=== PATIENT | male | born 1955 | race Caucasian/White ===

== ENCOUNTER 2016-11-21 20:13 | Emergency (ER) | payer OTHER ==
[2016-11-21 20:24] VITALS: BP 120/91
--- NOTE | 2016-11-21 20:26 | ER Document Report ---
ED General - General Stated Complaint: NON COMPLIANT Time Seen by Provider: 11/21/16 20:24 Notes: The patient is a 61-year-old male, past medical history dementia, presents by EMS from [facility] (Dementia and [facility]) after he was refusing vital signs earlier today. Based on the papers from the penitentiary, the patient was aggressive and not taking his medications. He has had multiple urination and defecation episodes in [place]'s and [place]'s rooms and their trash cans, according to the penitentiary records that were sent. Patient is in the emergency room, cooperative and allowing vital signs. He has no complaints at this time. Past Medical History - General Information source: Patient, Transfer Record - Social History Smoking Status: Unknown if Ever Smoked Family History: Reviewed & Not Pertinent Review of Systems - Review of Systems Notes: REVIEW OF SYSTEMS: CONSTITUTIONAL: -fevers, -chills EENT: -eye pain, -difficulty swallowing, -nasal congestion CARDIOVASCULAR:-chest pain, -syncope. RESPIRATORY: -cough, -SOB GASTROINTESTINAL: -abdominal pain, - nausea, -vomiting, -diarrhea GENITOURINARY: -dysuria, -hematuria MUSCULOSKELETAL: -back pain, -neck pain SKIN: -rash or skin lesions. HEMATOLOGIC: -easy bruising or bleeding. LYMPHATIC: -swollen, enlarged glands. NEUROLOGICAL: -altered mental status or loss of consciousness, -headache, - neurologic symptoms PSYCHIATRIC: -anxiety, -depression. ALL OTHER SYSTEMS REVIEWED AND NEGATIVE. Physical Exam - Vital signs Vitals: Pulse Resp BP Pulse Ox 88 16 120/91 H 98 11/21/16 20:18 11/21/16 20:18 11/21/16 20:18 11/21/16 20:18 - Notes Notes: PHYSICAL EXAMINATION: GENERAL: Well-appearing, well-nourished and in no acute distress. HEAD: Atraumatic, normocephalic. EYES: Pupils equal round and reactive to light, extraocular movements intact, sclera anicteric, conjunctiva are normal. ENT: nares patent, oropharynx clear without exudates. Moist mucous membranes. NECK: Normal range of motion, supple without lymphadenopathy LUNGS: Breath sounds clear to auscultation bilaterally and equal. No wheezes rales or rhonchi. HEART: Regular rate and rhythm without murmurs ABDOMEN: Soft, nontender, normoactive bowel sounds. No guarding, no rebound. No masses appreciated. EXTREMITIES: Normal range of motion, no pitting or edema. No cyanosis. NEUROLOGICAL: Cranial nerves grossly intact. Normal speech, normal gait. Normal sensory and motor exams. PSYCH: Normal mood, normal affect. Cooperative and pleasant. SKIN: Warm, Dry, normal turgor, no rashes or lesions noted. Course - Re-evaluation Re-evalutation: Patient's vital signs are completely normal in the emergency room. He is cooperative and pleasant in the emergency room and has no complaints. Labs and urine are not indicated on a well-appearing patient without any complaints and normal vital signs. Patient has no evidence of an emergent condition at this time. Will discharge him back to [facility] with f/u at [facility]. - Vital Signs Vital signs: Temp Pulse Resp BP Pulse Ox 88 16 120/91 H 98 11/21/16 20:18 11/21/16 20:18 11/21/16 20:18 11/21/16 20:18 Discharge - Discharge Clinical Impression: Normal exam Condition: Stable Disposition: HOME, SELF-CARE Additional Instructions: Your vital signs and exam are completely normal. No emergent condition is found at this time. The aggression may be a result of your increasing dementia. Follow-up with the [facility] for further evaluation and treatment.
== END 2016-11-21 20:56 | disposition home or self-care (01) ==
LOC: ER 20:13
DX: Z91.14 Patient's other noncompliance with medication regimen (principal); G30.9 Alzheimer's disease, unspecified; F02.80 Dementia in other diseases classified elsewhere, unspecified severity, without behavioral disturbance, psychotic disturbance, mood disturbance, and anxiety
CPT/HCPCS: 99284

== ENCOUNTER 2016-12-04 08:53 | Emergency (ER) | payer OTHER ==
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
[2016-12-04 10:58] LABS: ABSOLUTE BASOPHILS # (AUTO) 0.1 10^3/uL (0.0-0.2); ABSOLUTE EOSINOPHILS # (AUTO) 0.2 10^3/uL (0.0-0.6); ABSOLUTE MONOCYTES (AUTO) 0.7 10^3/uL (0.1-1.4); ABSOLUTE NEUT (AUTO) 7.9 10^3/uL (1.7-8.2); BASOPHILS % (AUTO) 0.8 % (0-2); EOSINOPHILS % (AUTO) 1.5 % (0-6); HEMATOCRIT 50.5 % (37.9-51.0); HEMOGLOBIN 16.7 g/dL (13.5-17.0); HGB HCT DIFFERENCE -0.4; LYMPHOCYTES % (AUTO) 10.4 % (13-45); MEAN CORPUSCULAR HEMOGLOBIN 29.6 pg (27.0-33.4); MEAN CORPUSCULAR VOLUME 90 fl (80-97); RED BLOOD COUNT 5.63 10^6/uL (4.35-5.55); RED CELL DISTRIBUTION WIDTH 13.7 % (11.5-14.0); SEGMENTED NEUTROPHILS % (AUTO) 80.3 % (42-78); WHITE BLOOD COUNT 9.9 10^3/uL (4.0-10.5)
[2016-12-04 11:27] LABS: ALANINE AMINOTRANSFERASE 24 U/L (21-72); ALBUMIN 4.5 g/dL (3.5-5.0); ALKALINE PHOSPHATASE 102 U/L (38-126); ANION GAP 14 (5-19); ASPARTATE AMINO TRANSFERASE 28 U/L (17-59); BILIRUBIN,DIRECT 0.4 mg/dL (0.0-0.4); BILIRUBIN,TOTAL 0.9 mg/dL (0.2-1.3); BLOOD UREA NITROGEN 18 mg/dL (7-20); CARBON DIOXIDE 25 mmol/L (22-30); CHLORIDE 101 mmol/L (98-107); CREATININE RESULT 1.17 mg/dL (0.52-1.25); GLUCOSE 93 mg/dL (75-110); MAGNESIUM 2.2 mg/dL (1.6-2.3); POTASSIUM 4.5 mmol/L (3.6-5.0); SODIUM 140.4 mmol/L (137-145); TOTAL PROTEIN 7.7 g/dL (6.3-8.2)
[2016-12-04 11:28] LABS: ALCOHOL < 10 mg/dL (NONE DETECTED)
[2016-12-04] MEDS ORDERED: HALOPERIDOL LACTATE INJ 5 MG/1 ML VIAL IM ONE (12:31)
[2016-12-04] MEDS ORDERED: MIDAZOLAM 2 MG/2 ML INJ IM ONE (12:32)
[2016-12-04] MEDS ORDERED: DIPHENHYDRAMINE HCL 50 MG/ML VIAL IM ONE (12:32)
[2016-12-04 12:59] LABS: FREE T3 4.17 pg/mL (2.77-5.27)
[2016-12-04] MEDS ORDERED: DIVALPROEX SODIUM 500 MG TAB.SR.24H PO SCH (14:00)
[2016-12-04 14:20] LABS: APPEARANCE,URINE CLEAR; BILIRUBIN,URINE NEGATIVE (NEGATIVE); GLUCOSE, URINE NEGATIVE (NEGATIVE); KETONES,URINE 100 mg/dL (NEGATIVE)
[2016-12-04 14:21] LABS: LEUKOCYTE ESTERASE,URINE NEGATIVE (NEGATIVE); NITRITE,URINE NEGATIVE (NEGATIVE); PROTEIN,URINE NEGATIVE (NEGATIVE); URINE SPECIFIC GRAVITY 1.022
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
[2016-12-04] MEDS ORDERED: ZIPRASIDONE MESYLATE INJ/PF 20 MG SDV IM ONE (14:34)
[2016-12-04 14:40] LABS: URINE BARBITURATES SCREEN NEGATIVE; URINE METHADONE SCREEN NEGATIVE; URINE OPIATES LOW NEGATIVE; URINE PHENCYCLIDINE SCREEN NEGATIVE
[2016-12-04] MEDS ORDERED: HYDROXYZINE PAMOATE 50 MG CAPSULE PO SCH (22:00)
[2016-12-04] MEDS ORDERED: BUSPIRONE HCL 10 MG TABLET PO SCH (22:00)
[2016-12-05] MEDS ORDERED: BUSPIRONE HCL 10 MG TABLET PO SCH (08:00)
[2016-12-05] MEDS ORDERED: CLONIDINE 0.1 MG/24 HR PATCH.TDWK TD ONE (09:20)
[2016-12-05] MEDS ORDERED: DIVALPROEX SODIUM 125 MG CAP.SPRINK PO SCH (10:00)
--- NOTE | 2016-12-05 15:01 | ER Document Report ---
Doctor's Note Notes: 12/05/16 15:00 The patient has been taking his medicine orally today and is felt that he can return to the [facility] with some changes to his medications.
[2016-12-05 18:23] VITALS: BP 149/92
== END 2016-12-05 18:23 | disposition home or self-care (01) ==
LOC: ER 08:53
DX: G30.9 Alzheimer's disease, unspecified (principal); F02.80 Dementia in other diseases classified elsewhere, unspecified severity, without behavioral disturbance, psychotic disturbance, mood disturbance, and anxiety; N18.9 Chronic kidney disease, unspecified; Z79.899 Other long term (current) drug therapy
CPT/HCPCS: 99285; 96372; 51701; 36415; 84439; 82962; 80307 ×2; 83735; 84443; 85025; 80053; 81001; 84481; J2250; J1200; J1630; J3486; J3490 ×2

== ENCOUNTER → 2016-12-15 | Emergency (ER) | payer OTHER ==
[~2016-12-15] MED LIST: DIVALPROEX SODIUM 125 MG CAP.SPRINK PO ONE; DIVALPROEX SODIUM 125 MG CAP.SPRINK PO SCH; HALOPERIDOL 5 MG TABLET PO ONE; LORAZEPAM 1 MG TABLET ONE; LORAZEPAM 1 MG TABLET PO ONE; LORAZEPAM INJ 2 MG/1 ML VIAL IM ONE
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
[2016-12-15 18:27] LABS: ABSOLUTE BASOPHILS # (AUTO) 0.1 10^3/uL (0.0-0.2); ABSOLUTE EOSINOPHILS # (AUTO) 0.2 10^3/uL (0.0-0.6); ABSOLUTE LYMPHOCYTES (AUTO) 1.2 10^3/uL (0.5-4.7); ABSOLUTE MONOCYTES (AUTO) 0.7 10^3/uL (0.1-1.4); ABSOLUTE NEUT (AUTO) 7.6 10^3/uL (1.7-8.2); BASOPHILS % (AUTO) 0.6 % (0-2); EOSINOPHILS % (AUTO) 1.6 % (0-6); HEMATOCRIT 43.7 % (37.9-51.0); HEMOGLOBIN 15.2 g/dL (13.5-17.0); HGB HCT DIFFERENCE 1.9; MEAN CORPUSCULAR HEMOGLOBIN 30.1 pg (27.0-33.4); MEAN CORPUSCULAR HGB CONC 34.6 g/dL (32.0-36.0); MEAN CORPUSCULAR VOLUME 87 fl (80-97); MONOCYTES % (AUTO) 7.1 % (3-13); RED BLOOD COUNT 5.03 10^6/uL (4.35-5.55); SEGMENTED NEUTROPHILS % (AUTO) 78.7 % (42-78); WHITE BLOOD COUNT 9.7 10^3/uL (4.0-10.5)
[2016-12-15 18:42] LABS: ALANINE AMINOTRANSFERASE 27 U/L (21-72); ALBUMIN 4.3 g/dL (3.5-5.0); ALKALINE PHOSPHATASE 101 U/L (38-126); ANION GAP 11 (5-19); ASPARTATE AMINO TRANSFERASE 23 U/L (17-59); BILIRUBIN,DIRECT 0.4 mg/dL (0.0-0.4); BILIRUBIN,TOTAL 0.5 mg/dL (0.2-1.3); BLOOD UREA NITROGEN 16 mg/dL (7-20); CALCIUM 9.5 mg/dL (8.4-10.2); CARBON DIOXIDE 24 mmol/L (22-30); CHLORIDE 104 mmol/L (98-107); CREATININE RESULT 1.04 mg/dL (0.52-1.25); GLUCOSE 93 mg/dL (75-110); POTASSIUM 4.1 mmol/L (3.6-5.0); SODIUM 139.1 mmol/L (137-145); TOTAL PROTEIN 7.5 g/dL (6.3-8.2)
[2016-12-15 18:47] LABS: VALPROIC ACID 51.2 ug/mL (50.0-120.0)
[2016-12-15 21:08] LABS: ABSOLUTE BASOPHILS # (AUTO) 0.1 10^3/uL (0.0-0.2); ABSOLUTE EOSINOPHILS # (AUTO) 0.2 10^3/uL (0.0-0.6); ABSOLUTE LYMPHOCYTES (AUTO) 1.4 10^3/uL (0.5-4.7); ABSOLUTE MONOCYTES (AUTO) 0.8 10^3/uL (0.1-1.4); ABSOLUTE NEUT (AUTO) 7.7 10^3/uL (1.7-8.2); BASOPHILS % (AUTO) 0.7 % (0-2); EOSINOPHILS % (AUTO) 2.1 % (0-6); HEMOGLOBIN 14.2 g/dL (13.5-17.0); HGB HCT DIFFERENCE 1.6; LYMPHOCYTES % (AUTO) 13.8 % (13-45); MEAN CORPUSCULAR HEMOGLOBIN 30.2 pg (27.0-33.4); MEAN CORPUSCULAR HGB CONC 34.6 g/dL (32.0-36.0); MEAN CORPUSCULAR VOLUME 87 fl (80-97); MONOCYTES % (AUTO) 7.9 % (3-13); RED CELL DISTRIBUTION WIDTH 13.7 % (11.5-14.0); SEGMENTED NEUTROPHILS % (AUTO) 75.5 % (42-78); WHITE BLOOD COUNT 10.2 10^3/uL (4.0-10.5)
[2016-12-15 21:33] LABS: ALANINE AMINOTRANSFERASE 18 U/L (21-72); ALBUMIN 3.7 g/dL (3.5-5.0); ALKALINE PHOSPHATASE 87 U/L (38-126); ANION GAP 11 (5-19); ASPARTATE AMINO TRANSFERASE 23 U/L (17-59); BILIRUBIN,DIRECT 0.4 mg/dL (0.0-0.4); BILIRUBIN,TOTAL 0.5 mg/dL (0.2-1.3); BLOOD UREA NITROGEN 17 mg/dL (7-20); CALCIUM 9.2 mg/dL (8.4-10.2); CARBON DIOXIDE 25 mmol/L (22-30); CHLORIDE 103 mmol/L (98-107); CREATININE RESULT 1.04 mg/dL (0.52-1.25); GLUCOSE 93 mg/dL (75-110); POTASSIUM 3.9 mmol/L (3.6-5.0); TOTAL PROTEIN 6.5 g/dL (6.3-8.2)
[2016-12-15] MEDS: HALOPERIDOL 1 MG TABLET PO SCH (22:12)
--- NOTE | 2016-12-15 23:59 | EKG REPORT ---
SEVERITY:- NORMAL ECG - SINUS RHYTHM : Confirmed by: Paddy Napier 15-Dec-2016 23:58:49
[2016-12-16] MEDS: QUETIAPINE FUMARATE 25 MG TABLET PO SCH (10:18)
[2016-12-16] MEDS: DIVALPROEX SODIUM 125 MG CAP.SPRINK PO SCH ×2 (10:18→18:12)
[2016-12-16] MEDS: POLYETHYLENE GLYCOL 3350 POWDER 17 GM/1 PACKET PO SCH (10:18)
[2016-12-16] MEDS: DONEPEZIL HCL 5 MG TABLET PO SCH (10:18)
[2016-12-16] MEDS: AMLODIPINE BESYLATE 10 MG TABLET PO SCH (10:18)
[2016-12-16] MEDS: TAMSULOSIN HCL 0.4 MG CAP.SR.24H PO SCH (10:18)
[2016-12-16] MEDS: HALOPERIDOL 1 MG TABLET PO SCH ×2 (14:08→21:15)
--- NOTE | 2016-12-16 18:26 | ER Document Report ---
Doctor's Note Notes: 12/16/16 18:26 Saw and evaluated patient. Patient has no acute complaints. Social work is attempting to find placement for the patient. Medications have been continued.
[2016-12-17 04:08] LABS: APPEARANCE,URINE CLEAR; BILIRUBIN,URINE NEGATIVE (NEGATIVE); GLUCOSE, URINE NEGATIVE (NEGATIVE); KETONES,URINE TRACE mg/dL (NEGATIVE); LEUKOCYTE ESTERASE,URINE NEGATIVE (NEGATIVE); NITRITE,URINE NEGATIVE (NEGATIVE); PROTEIN,URINE NEGATIVE (NEGATIVE); URINE SPECIFIC GRAVITY 1.021
[2016-12-17 04:18] LABS: URINE BARBITURATES SCREEN NEGATIVE; URINE METHADONE SCREEN NEGATIVE; URINE OPIATES LOW NEGATIVE; URINE PHENCYCLIDINE SCREEN NEGATIVE
[2016-12-17] MEDS: HALOPERIDOL 1 MG TABLET PO SCH ×2 (06:00→13:48)
[2016-12-17] MEDS: DONEPEZIL HCL 5 MG TABLET PO SCH (10:31)
[2016-12-17] MEDS: TAMSULOSIN HCL 0.4 MG CAP.SR.24H PO SCH (10:32)
[2016-12-17] MEDS: AMLODIPINE BESYLATE 10 MG TABLET PO SCH (10:33)
[2016-12-17] MEDS: DIVALPROEX SODIUM 125 MG CAP.SPRINK PO SCH ×2 (10:36→17:58)
[2016-12-17] MEDS: QUETIAPINE FUMARATE 25 MG TABLET PO SCH (10:38)
[2016-12-17] MEDS: POLYETHYLENE GLYCOL 3350 POWDER 17 GM/1 PACKET PO SCH (10:42)
--- NOTE | 2016-12-17 17:19 | ER Document Report ---
Doctor's Note Notes: 12/17/16 17:19 I have seen and evaluated the patient. Vital signs are stable and he is in no acute distress. He has been getting his medications and eating appropriately. We are still awaiting placement by oncology social worker.
[2016-12-18] MEDS: HALOPERIDOL 1 MG TABLET PO SCH ×2 (00:20→20:00)
[2016-12-18 06:28] LABS: ABSOLUTE BASOPHILS # (AUTO) 0.1 10^3/uL (0.0-0.2); ABSOLUTE EOSINOPHILS # (AUTO) 0.3 10^3/uL (0.0-0.6); ABSOLUTE LYMPHOCYTES (AUTO) 1.5 10^3/uL (0.5-4.7); ABSOLUTE MONOCYTES (AUTO) 0.8 10^3/uL (0.1-1.4); ABSOLUTE NEUT (AUTO) 6.4 10^3/uL (1.7-8.2); BASOPHILS % (AUTO) 0.7 % (0-2); EOSINOPHILS % (AUTO) 3.2 % (0-6); HEMATOCRIT 45.4 % (37.9-51.0); HEMOGLOBIN 15.8 g/dL (13.5-17.0); LYMPHOCYTES % (AUTO) 16.3 % (13-45); MEAN CORPUSCULAR HEMOGLOBIN 30.5 pg (27.0-33.4); MEAN CORPUSCULAR HGB CONC 34.8 g/dL (32.0-36.0); MEAN CORPUSCULAR VOLUME 88 fl (80-97); MONOCYTES % (AUTO) 8.8 % (3-13); RED BLOOD COUNT 5.19 10^6/uL (4.35-5.55); RED CELL DISTRIBUTION WIDTH 13.8 % (11.5-14.0)
[2016-12-18 06:45] LABS: ALANINE AMINOTRANSFERASE 14 U/L (21-72); ALBUMIN 3.9 g/dL (3.5-5.0); ALKALINE PHOSPHATASE 95 U/L (38-126); ANION GAP 11 (5-19); ASPARTATE AMINO TRANSFERASE 23 U/L (17-59); BILIRUBIN,DIRECT 0.4 mg/dL (0.0-0.4); BILIRUBIN,TOTAL 0.8 mg/dL (0.2-1.3); BLOOD UREA NITROGEN 12 mg/dL (7-20); CALCIUM 9.8 mg/dL (8.4-10.2); CARBON DIOXIDE 29 mmol/L (22-30); CHLORIDE 102 mmol/L (98-107); CREATININE RESULT 0.94 mg/dL (0.52-1.25); GLUCOSE 88 mg/dL (75-110); POTASSIUM 4.8 mmol/L (3.6-5.0)
[2016-12-18 06:51] LABS: VALPROIC ACID 72.6 ug/mL (50.0-120.0)
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
[2016-12-18] MEDS: DONEPEZIL HCL 5 MG TABLET PO SCH (09:28)
[2016-12-18] MEDS: AMLODIPINE BESYLATE 10 MG TABLET PO SCH (09:29)
[2016-12-18] MEDS: DIVALPROEX SODIUM 125 MG CAP.SPRINK PO SCH ×2 (09:29→17:35)
[2016-12-18] MEDS: QUETIAPINE FUMARATE 25 MG TABLET PO SCH (09:29)
[2016-12-18] MEDS: TAMSULOSIN HCL 0.4 MG CAP.SR.24H PO SCH (09:30)
[2016-12-18] MEDS: POLYETHYLENE GLYCOL 3350 POWDER 17 GM/1 PACKET PO SCH (09:30)
[2016-12-19] MEDS: HALOPERIDOL 1 MG TABLET PO SCH ×3 (06:30→22:40)
[2016-12-19] MEDS: DIVALPROEX SODIUM 125 MG CAP.SPRINK PO SCH (11:01)
[2016-12-19] MEDS: POLYETHYLENE GLYCOL 3350 POWDER 17 GM/1 PACKET PO SCH (11:02)
[2016-12-19] MEDS: AMLODIPINE BESYLATE 10 MG TABLET PO SCH (11:03)
[2016-12-19] MEDS: DONEPEZIL HCL 5 MG TABLET PO SCH (11:03)
[2016-12-19] MEDS: TAMSULOSIN HCL 0.4 MG CAP.SR.24H PO SCH (11:07)
[2016-12-19] MEDS: QUETIAPINE FUMARATE 25 MG TABLET PO SCH (11:07)
--- NOTE | 2016-12-19 15:53 | ER Document Report ---
Doctor's Note Notes: 12/19/16 15:52 Referred patient has been up and ambulated and has eaten. He is calm at this point has no complaints. Vital signs reviewed and remain relatively stable. Discussed with social work and they are continuing to attempt placement which has been difficult.
[2016-12-20] MEDS: HALOPERIDOL 1 MG TABLET PO SCH ×3 (04:33→21:16)
--- NOTE | 2016-12-20 09:21 | ER Document Report ---
Doctor's Note Notes: 12/20/16 09:21 As the rounding physician for our psychiatric patients, I have reviewed the chart, vitals, lab work. Patient has been examined and noted to be stable. I am awaiting mental health in [place].
[2016-12-20] MEDS: AMLODIPINE BESYLATE 10 MG TABLET PO SCH (10:27)
[2016-12-20] MEDS: TAMSULOSIN HCL 0.4 MG CAP.SR.24H PO SCH (10:27)
[2016-12-20] MEDS: POLYETHYLENE GLYCOL 3350 POWDER 17 GM/1 PACKET PO SCH (10:27)
[2016-12-20] MEDS: QUETIAPINE FUMARATE 25 MG TABLET PO SCH (10:28)
[2016-12-20] MEDS: DIVALPROEX SODIUM 125 MG CAP.SPRINK PO SCH ×2 (10:32→17:51)
[2016-12-20] MEDS: DONEPEZIL HCL 5 MG TABLET PO SCH (10:32)
[2016-12-20 12:50] VITALS: BP 134/78
== END ==
LOC: ER 17:40
DX: R45.6 Violent behavior (principal); G30.9 Alzheimer's disease, unspecified; F02.80 Dementia in other diseases classified elsewhere, unspecified severity, without behavioral disturbance, psychotic disturbance, mood disturbance, and anxiety
CPT/HCPCS: 93005; 36415; 85025; 80053; 81001; 80164; 80307; 93010; J3490